=== PATIENT | female | born 1975 | race Caucasian/White ===

== ENCOUNTER 2019-05-06 01:16 | Emergency (ER) | payer BC ==
[2019-05-06] MEDS ORDERED: FAMOTIDINE 20 MG TABLET PO ONE (01:24)
[2019-05-06 01:25] VITALS: BP 128/80; PULSE 70; TEMP 98.4; BMI 26.6
[2019-05-06] MEDS ORDERED: FAMOTIDINE 20 MG TABLET ONE (01:27)
[2019-05-06] MEDS ORDERED: predniSONE 20 MG TABLET (UD) ONE (01:27)
[2019-05-06] MEDS ORDERED: predniSONE 10 MG TABLET (UD) ONE (01:27)
[2019-05-06] MEDS ORDERED: predniSONE 20 MG TABLET (UD) PO ONE (01:36)
--- NOTE | 2019-05-06 01:58 | PDOC ---
History of Present Illness - General Chief Complaint: Allergic Reaction Stated Complaint: ALLERGIC REACTION Time Seen by Provider: 05/06/19 01:24 - History of Present Illness Initial Comments: 05/06/19 01:54 44 years old with no significant past medical history with not ALLERGY used a new facial cream this evening unknown to patient it contained macadamia nut oil. Patient began to notice a tingling sensation to her tongue and the back of her throat no difficulty breathing no difficulty swallowing. Patient has had one similar type ALLERGIC reaction in the past. No history of any severe life- threatening ALLERGIC reactions. Symptoms are mild persistent constant with no exacerbating or alleviating factors happened approximately 1-1-1/2 hours prior to arrival. Took Benadryl at home approximately 50 mg. Past History - Past Medical History Allergies/Adverse Reactions: Allergies Allergy/AdvReac Type Severity Reaction Status Date / Time apple Allergy Verified 05/06/19 01:17 Fish Containing Products Allergy Verified 05/06/19 01:17 peanut Allergy Verified 05/06/19 01:17 Home Medications: Ambulatory Orders EPINEPHrine (EPI-PEN 0.3MG) [Epipen 0.3MG -] 0.3 mg IM ASDIR #2 pens 05/06/19 Prednisone [Deltasone] 40 mg PO DAILY #6 tablet 05/06/19 COPD: No - Suicide/Smoking/Psychosocial Hx Smoking History: Unknown if ever smoked Have you smoked in the past 12 months: No Number of Cigarettes Smoked Daily: 0 Information on smoking cessation initiated: No Hx Alcohol Use: No Drug/Substance Use Hx: No Review of Systems - Review of Systems Comments:: 05/06/19 01:55 ROS: A complete review of 10 out of 10 review of systems is taken and is negative apart from what is previously mentioned below and in the HPI. *Physical Exam - Vital Signs Last Vital Signs Temp Pulse Resp BP Pulse Ox 98.4 F 70 14 128/80 98 05/06/19 01:20 05/06/19 01:20 05/06/19 01:20 05/06/19 01:20 05/06/19 01:20 - Physical Exam Comments: 05/06/19 01:56 Vitals: Triage Vital signs reviewed General Appearance: no acute distress, well nourished well developed, Head: Atraumatic, Throat: Posterior oropharynx without erythema, mucous membranes moist, Neck: Supple;No Nucal rigidity, no stridor Chest Wall: Nontender Cardiac: Regular rate and rhythym, no murmurs, no rubs, no gallops, Lungs: Clear to auscultation bilateral, good air movement bilaterally, Extremities: Full range of motion to all extremities, no cyanosis, clubbing, or edema Skin: Warm and dry, no rashes or lesions, no rash, no petechiae Psych: normal mood, normal affect ED Treatment Course - Medications Given in the ED: ED Medications Discontinued Medications Generic Name Dose Route Start Last Admin Trade Name Trevq PRN Reason Stop Dose Admin Famotidine 20 mg 05/06/19 01:24 05/06/19 01:25 Pepcid - PO 05/06/19 01:25 20 mg ONCE ONE Administration Prednisone 50 mg 05/06/19 01:36 05/06/19 01:43 Deltasone - PO 05/06/19 01:37 50 mg ONCE ONE Administration Medical Decision Making - Medical Decision Making 05/06/19 01:57 Well-appearing no apparent distress mild ALLERGIC reaction to cream containing nuts Patient ready to Benadryl. We'll treat with prednisone and Pepcid by mouth in the emergency department observe and reassess. *DC/Admit/Observation/Transfer Diagnosis at time of Disposition: Allergic reaction Qualifiers: Encounter type: initial encounter Qualified Code(s): T78.40XA - Allergy, unspecified, initial encounter - Discharge Dispostion Disposition: HOME Condition at time of disposition: Good Decision to Admit order: No - Referrals - Patient Instructions Printed Discharge Instructions: DI for General Allergic Reactions Additional Instructions: Prednisone as prescribed. Take 25 mg Benadryl every 4-6 hours for the next 3 days. Take [id number] Pepcid 20 mg twice a day for the next 3 days. EpiPen for severe life-threatening ALLERGIC reaction only if needed. Follow-up with her doctor this week. Return to the emergency department for any severe worsening symptoms or for any concerns. - Post Discharge Activity
[2019-05-06] MEDS ORDERED: predniSONE 20 MG TABLET (UD) PO SCH (10:00)
== END 2019-05-06 02:16 | disposition home or self-care (01) ==
LOC: FER 01:16
DX: T78.40XA Allergy, unspecified, initial encounter (principal)
CPT/HCPCS: 99282-25

== ENCOUNTER 2022-07-16 12:43 | Emergency (ER) | payer BC ==
[2022-07-16 13:10] VITALS: BP 131/67; PULSE 80; RESP 20; TEMP 98.2; BMI 27.7
[2022-07-16 14:19] LABS: HCG,QUALITATIVE URINE Negative
[2022-07-16 14:21] LABS: ALBUMIN 4.1 g/dl (3.4-5.0); BILIRUBIN,TOTAL 1.2 mg/dl (0.2-1); CALCIUM 9.7 mg/dl (8.5-10); CREATININE 0.8 mg/dl (0.55-1.3); TOT PROT 7.4 g/dl (6.4-8.2)
[2022-07-16] MEDS ORDERED: predniSONE 20 MG TABLET (UD) PO ONE (14:50)
[2022-07-16 14:51] LABS: HEMATOCRIT 42.6 % (32.4-45.2); MCHC 36.4 g/dl (32.0-36.0); MEAN PLT VOLUME 8.6 fl (7.5-11.1); PLATELET COUNT 195.2 10^3/uL (134-434); RBC 4.84 10^6/uL (3.60-5.2); RDW 13.7 % (11.6-15.6); WHITE BLOOD COUNT 5.7 10^3/uL (4.0-10.8)
[2022-07-16] MEDS ORDERED: predniSONE 20 MG TABLET (UD) ONE (14:55)
[2022-07-16 14:56] LABS: HEMOGLOBIN 15.5 G/dL (10.7-15.3)
[2022-07-16 15:00] LABS: EPITHELIAL CELLS MODERATE /hpf
== END 2022-07-16 15:46 | disposition home or self-care (01) ==
LOC: FER 12:43
DX: G51.0 Bell's palsy (principal)
CPT/HCPCS: 36415; 70450-TC; 80053; 81003; 81015; 84703; 85027; 99285-25